=== PATIENT | male | born 2005 | race Two or more races ===

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

== ENCOUNTER 2025-03-09 13:11 | Outpatient (AMB) | payer OTHER, SELFPAY ==
[2025-03-09 13:23] VITALS: BP 130/88; PULSE 89; TEMP 37.2; O2SAT 97; BMI 24.0
--- NOTE | 2025-03-09 13:23 | A.OFFPC_ITS ---
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 Accompanied by: Self / Same As Patient Allergies No Known Allergies Allergy (Verified 03/09/25 14:11) Medication List - Last Reconciled 03/09/25 by LLUVIA Romero-OMHSEN fluoxetine 30 mg PO DAILY guanfacine ER 4 mg PO DAILY methylphenidate HCl ER (Concerta) 36 mg PO DAILY Tobacco use date assessed: 03/09/25 Dental Screening Dental Screen Date: 03/09/25 Did you have a dental visit in the last 12 months?: Yes Did you have a dental problem in the last 6 months where you did not have access to dental care?: No Was dental information given to patient?: Patient declined HPI Reschedule 6m follow up HPI Details Chief Complaint The patient presents for a sick visit follow-up. History of Present Illness The patient is a 19 year old male presenting for a sick visit follow-up. He is an established patient who was first seen for a physical exam in June. He has a history of autism spectrum disorder and anxiety for which he sees a psychiatrist and a therapist. He reports his anxiety and ADHD are well-managed and that he is doing quite well overall. Social History Health Maintenance - The patient had a physical exam in [facility]. - A follow-up physical is planned in [facility] 4-5 months. Review of Systems - Constitutional: Reports doing quite we ll. - Psychiatric: Reports well-managed anxi ety and depression. Physical Exam General: Cooperative, healthy appearing, comfortable, no acute distress and well developed Orientation: Patient oriented x3 Limitations: No limitations Head: Normal to inspection Ears: Hearing grossly normal bilaterally Nose: Normal external nose present Face and sinus: Normal facial exam Eyes: Appearance normal, both eyes and all related structures Neck: Normal visual inspection and Yes full ROM Respiratory: Normal respiratory effort and able to speak in complete sentences. Clear to auscultation bilaterally Cardiovascular: Regular rate and rhythm. Normal S1 and S2 GI: Normal to inspection. Soft to palpation and nontender Skin: No rashes or lesions noted Neuro: Patient oriented x3 Extremities: Normal to inspection Results Plan 1. Follow-Up Examination The patient reports doing well at this sick visit follow-up. He will return for a follow-up physical examination in approximately 4-5 months. 2. Autism Spectrum Disorder The patient is on the autism spectrum. He will continue to see a psychiatrist and therapist for management. 3. Anxiety The patient's anxiety is reportedly well-managed. He will continue with his current care plan, which includes seeing a psychiatrist and engaging in therapy. Discussion Notes I saw this 19-year-old male for a sick visit follow-up. He reports that he is doing well, and his chronic conditions, including autism spectrum disorder, anxiety, and ADHD are well managed with the help of his psychiatrist and therapist. My examination revealed normal S1 and S2 heart sounds and clear lungs. I have advised him to return for a follow-up physical in about 4-5 months. Patient Instructions - You are doing well, and your condition s seem to be well-managed. - Continue to see your psychiatrist and therapist for your anxiety and ADHD. - Please return for a follow-up physical exam in about 4-5 months. [facility] Medical History (Updated 03/09/25 @ 14:12 by LLUVIA Romero-MOHSEN) Anxiety Autism Family History Father Substance use disorder Social History Housing: House Patient Tobacco Use Status: Never used Tobacco e-Cigarette/Vaping Use: Never Used service: No Current occupational status: employed Cognitive needs: No Hearing needs: No Vision needs: Yes Questionnaire PHQ-9 Over the last 2 weeks, how often have you been bothered by any of the following problems? 1. Little interest or pleasure in doing things: not at all 2. Feeling down, depressed, or hopeless: not at all 3. Trouble falling or staying asleep, or sleeping too much: not at all 4. Feeling tired or having little energy: not at all 5. Poor appetite or overeating: not at all 6. Feeling bad about yourself - or that you are a failure or have let yourself or your family down: not at all 7. Trouble concentrating on things, such as reading the newspaper or watching television: not at all 8. Moving or speaking so slowly that other people could have noticed. Or the opposite - being so fidgety or restless that you have been moving around a lot more than usual: not at all 9. Thoughts that you would be better off or of hurting yourself in some way: not at all Total score: 0 Depression Screening Interpretation: Negative Depression Screening Done: Yes 26447 - PHQ-9 Billing: Yes Source: Developed by Drs. Bernard Sierra, Leticia Marks, Rosendo Villarreal and colleagues, with an educational yogesh from [employer]. Thrive Questionnaire Date Thrive assessed: 06/28/24 I am a: Patient What is your living situation today?: I have a steady place to live Within the past 12 months, did the food you bought not last and you didn't have the money to get more?: Never true Within the past 12 months, did you worry whether your food would run out before you got money to buy more?: Never true Do you have trouble paying for medicines?: No Do you have trouble getting transportation to medical appointments?: No Do you have trouble paying your heating and electricity bill?: No Do you have trouble taking care of your child, family member or friend?: No Do you have trouble with day-to-day activities such as bathing, preparing meals, shopping, managing finances, etc.?: No Are you currently unemployed and looking for a job?: No Are you interested in more education?: No Please select the resources that you would like help with: None Currently or been in a relationship where the following occur: No concerns reported THRIVE Score: 0 SHANNAN-7 AMB Questionnaire SHANNAN-7 Date SHANNAN - 7 assessed: 03/09/25 Feeling nervous, anxious, or on edge: 0 = Not at all Not being able to stop or control worryin = Not at all Worrying too much about different things: 0 = Not at all Trouble relaxin = Not at all Being so restless that it is hard to sit still: 0 = Not at all Becoming easily annoyed or irritable: 0 = Not at all Feeling afraid as if something awful might happen: 0 = Not at all Total SHANNAN-7 score (0-4 normal; 5-9 mild; 10-14 moderate; 15-21 severe): 0 Source: Developed by Drs. Bernard Sierra, Leticia Marks, Rosendo Villarreal and colleagues, with an educational yogesh from [employer]. SHANNAN-7 Assessment Billing SHANNAN-7 Assessment Tool: SHANNAN-7 Assessment 65367 Physical exam (Primary Care) Vital Signs: Last Vital Signs Temp 98.9 F 03/09/25 13:23 Pulse 89 03/09/25 13:23 BP 130/88 03/09/25 13:23 Pulse Ox 97 03/09/25 13:23 BMI result Body Mass Index 24.0 Tobacco/Smoking Status: Tobacco use Status Tobacco use date assessed 03/09/25 03/09/25 13:27 Patient Tobacco Use Status Never used Tobacco 03/09/25 13:27 e-Cigarette/Vaping Use Never Used 03/09/25 13:27 PHQ-9: PHQ-9 Score PHQ-9: Total score 0 03/09/25 13:27 Depression Screening Interpretation: Negative Thrive Assessment: Date of Thrive Assessment Date Thrive assessed 06/28/24 03/09/25 13:27 Currently or been in a relationship where the following occur: No concerns reported Coding Level of Care Code Est Pt Level 3 (83615) Diagnoses ADHD F90.9 Anxiety F41.9 Autism F84.0 Additional Codes SHANNAN-7 Assessment Billing - SHANNAN-7 Assessment Tool: SHANNAN-7 Assessment 11172 ([id number]) PHQ-9 - 06512 - PHQ-9 Billing: Yes ([id number]) Assessment & Plan Assessment & Plan (1) ADHD: Code(s): F90.9 - Attention-deficit hyperactivity disorder, unspecified type Category: Medical (2) Anxiety: Code(s): F41.9 - Anxiety disorder, unspecified Category: Medical (3) Autism: Code(s): F84.0 - Autistic disorder Category: Medical Plan .
== END 2025-03-09 14:13 | disposition home or self-care (01) ==
LOC: HO.HMCC 13:12
PROVIDERS: PCP Nurse Practitioner Family; Visit Provider Nurse Practitioner Family
DX: F90.9 Attention-deficit hyperactivity disorder, unspecified type (principal); F41.9 Anxiety disorder, unspecified; F84.0 Autistic disorder

== ENCOUNTER → 2025-03-09 13:11 | Outpatient (BNVA) | payer OTHER, SELFPAY | PROVIDERS: PCP Nurse Practitioner Family; Visit Provider Nurse Practitioner Family | DX: F90.9 Attention-deficit hyperactivity disorder, unspecified type (principal); F41.9 Anxiety disorder, unspecified; F84.0 Autistic disorder; Z13.31 Encounter for screening for depression; Z13.39 Encounter for screening examination for other mental health and behavioral disorders | CPT/HCPCS: 96127; 99212 ==